=== PATIENT | female | born 1990 | race Caucasian/White ===

== ENCOUNTER 2016-04-26 18:02 | Emergency (ER) | payer OTHER ==
[~2016-04-26 18:02] MED LIST: CLARITIN10 MG PO; HYDROMORPHONE HC2 MG PO; IBUPROFEN800 MG PO; MOBIC 15MG15 MG PO; VICODIN5-300 PO
[2016-04-26] MEDS ORDERED: ALPRAZOLAM1 M2 PO (18:24)
[2016-04-26] MEDS ORDERED: DEXTROAMP-AMPHE30 MG PO (18:24)
[2016-04-26] MEDS ORDERED: PERIOGARD473 ML PO (18:25)
[2016-04-26] MEDS ORDERED: VITAFOL ULTRA1 EACH PO (18:25)
[2016-04-26 18:29] LABS: ABSOLUTE BASOPHIL COUNT 0.2 /CUMM (0.0-0.2); ABSOLUTE EOSINOPHIL COUNT 0 /CUMM (0.0-0.7); ABSOLUTE LYMPH COUNT 1.8 /CUMM (1.2-3.4); ABSOLUTE MONOCYTE COUNT 0.8 /CUMM (0.10-0.60); BASOPHIL % 1.1 % (0.0-2.0); EOSINOPHIL % 0.2 % (0-5); GRANULOCYTE % 83.5 % (42.2-75.2); HEMATOCRIT 43.3 % (37-47); MEAN CORPUSCULAR HGB 32.3 PG (27.0-31.0); MEAN CORPUSCULAR HGB CONC 34.1 G/DL (33.0-37.0); MEAN PLATELET VOLUME 8.1 FL (7.4-10.4); PLATELET COUNT 270 /CUMM (130-400); RBC DISTRIBUTION WIDTH 14.1 % (11.5-14.5); RED BLOOD CELL CT 4.56 /CUMM (4.20-5.40); WHITE BLOOD CELL COUNT 16.8 /CUMM (4.8-10.8)
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
[2016-04-26 22:27] VITALS: BP 124/74
== END 2016-04-26 22:28 ==
LOC: ERH 18:02
PROVIDERS: Physician Assistant
DX: F32.9 Major depressive disorder, single episode, unspecified (principal)
CPT/HCPCS: 80307; G0463; G0480

== ENCOUNTER 2016-05-26 06:48 | Emergency (ER) | payer OTHER ==
[~2016-05-26] VITALS: Ht 170.2 cm; Wt 90.7 kg
[~2016-05-26 06:48] MED LIST changes: +ALPRAZOLAM1 M2 PO; +DEXTROAMP-AMPHE30 MG PO; +PERIOGARD473 ML PO; +VITAFOL ULTRA1 EACH PO
[2016-05-26 07:00] VITALS: BP 135/85
--- NOTE | 2016-05-26 07:19 | ED GENERAL ADULT ---
History of Present Illness General Chief Complaint: Eye Problems Stated Complaint: "PER PT BOTH EYES, INFECTION" Source: patient Exam Limitations: no limitations Vital Signs & Intake/Output Vital Signs & Intake/Output Vital Signs Date Time Temp Pulse Resp B/P Pulse O2 O2 Flow FiO2 Ox Delivery Rate 05/26 0700 96.8 85 18 135/85 97 Room Air 05/26 0659 Room Air Allergies Coded Allergies: oxycodone (VOMIT 04/26/16) Reconcile Medications Alprazolam 1 MG TABLET 1 TAB PO 4 TIMES/DAY PRN ANXIETY/PMDD (Reported) Moxifloxacin Hydrochloride (Vigamox) 0.5 % DROPS 1 GTT OPH TID CONJUNCTIVTIS APPLY TO LEFT EYE DIRECTED FOR 5 DAYS Triage Note: TRIAGE: PATIENT TO ER FROM HOME W/ ?PINK EYE TO BILAT EYES, L>R SINCE NOON YESTERDAY. REPORTS PAIN AND ITCH TO BILATERAL EYES. REDNESS/ TEARING NOTED TO L EYE. PATIENT CURRENTLY 5 WEEKS . Triage Nurses Notes Reviewed? yes Onset: Abrupt Duration: day(s): Timing: recent history : No Patient currently breastfeeds: No HPI: 05/26/16 7 AM 26-year-old female presents to the emergency department for left eye discharge and itchiness. The patient states that for the last 2 days she's had left eye discharge and itchiness. This morning the left eye was stuck together. No real eye pain but it is itchy, she says it's interfering somewhat with her vision. Visual acuity was checked and was essentially normal. She also admits to nasal congestion and a mild sore throat. The onset of the symptoms was abrupt. The duration of the symptoms was 48 hours. The severity is significant as her symptoms required her to come to the emergency department for care. She has associated eye discharge and itchiness. She is 5 weeks by history. No abdominal pain or vaginal bleeding. Past History Travel History Traveled to [place] past 21 day No Medical History Any Pertinent Medical History? see below for history Neurological: NONE EENT: NONE Cardiovascular: NONE Respiratory: NONE Gastrointestinal: NONE Hepatic: NONE Renal: NONE Musculoskeletal: NONE Psychiatric: anxiety, depression, substance abuse Endocrine: NONE Blood Disorders: NONE Cancer(s): NONE DENTAL INSURANCE COORDINATOR/Reproductive: ectopic Surgical History Surgical History: non-contributory Psychosocial History Who do you live with Other (see notes) What is your primary language Cymraes Tobacco Use: Refused to answer (SHE DOES SMOKE) ETOH Use: denies use ( INTERESTINGLY) Family History Hx Contributory? No Review of Systems Review of Systems Constitutional: Denies: fever. EENTM: Reports: see HPI. Respiratory: Reports: see HPI. Cardiovascular: Reports: no symptoms. GI: Reports: no symptoms. Denies: abdominal pain. Genitourinary: Reports: no symptoms. Musculoskeletal: Reports: no symptoms. Skin: Reports: no symptoms. Neurological/Psychological: Reports: no symptoms. Hematologic/Endocrine: Reports: no symptoms. Immunologic/Allergic: Reports: no symptoms. Physical Exam Physical Exam General Appearance: well developed/nourished, alert, awake, anxious, mild distress Head: atraumatic Eyes: Bilateral: PERRL, EOMI (CONJUNCTIVAL INJECTION OS). Ears, Nose, Throat: normal pharynx, hearing grossly normal Neck: normal inspection, supple, full range of motion Respiratory: normal breath sounds, chest non-tender, no respiratory distress Cardiovascular: regular rate/rhythm Peripheral Pulses: 4+ radial (R), 4+ radial (L) Gastrointestinal: non-tender Back: normal range of motion Extremities: no edema Neurologic/Psych: no motor/sensory deficits, awake, alert, oriented x 3 Skin: intact, normal color, warm/dry Core Measures ACS in differential dx? No CVA/TIA Diagnosis: No Severe Sepsis Present: No Septic Shock Present: No Progress Differential Diagnoses I considered the following diagnoses in my evaluation of the patient: [Glaucoma, bacterial conjunctivitis, allergicl conjunctivitis, viral conjunctivitis, viral syndrome] Plan of Care: Orders Procedure Date/time Status ED- VISUAL ACUITY 05/26 0726 Active Initial ED EKG: none Departure Departure Disposition: HOME OR SELF CARE Condition: Stable Clinical Impression Primary Impression: Acute bacterial conjunctivitis Referrals: PHOEBE FALK,DAWNA Vazquez (PCP/Family) Departure Forms: Customer Survey General Discharge Information Prescriptions: Current Visit Scripts Moxifloxacin Hydrochloride (Vigamox) 1 GTT OPH TID #3 ML APPLY TO LEFT EYE DIRECTED FOR 5 DAYS Critical Care Note Critical Care Note Critical Care Time: non-applicable
[2016-05-26] MEDS ORDERED: VIGAMOX3 ML OPH (07:46)
== END 2016-05-26 07:53 ==
LOC: ERH 06:48
DX: O99.89 Other specified diseases and conditions complicating pregnancy, childbirth and the puerperium (principal); H10.33 Unspecified acute conjunctivitis, bilateral; Z3A.01 Less than 8 weeks gestation of pregnancy